=== PATIENT | male | born 1950 | race Caucasian/White ===

== ENCOUNTER 2019-11-16 13:27 | Emergency (ER) | payer OTHER, MEDICARE ==
[~2019-11-16] VITALS: Ht 193 cm; Wt 136.1 kg
[2019-11-16 13:55] VITALS: BP 167/92
[2019-11-16] MEDS ORDERED: CEPH-264 PO (14:36)
[2019-11-16] MEDS ORDERED: MUPI22OI2 TP (14:36)
--- NOTE | 2019-11-16 14:37 | PHYS DOC ---
Past Medical History Past Medical History: No Pertinent History Past Surgical History: Other Additional Past Surgical Histo: LEFT KNEE Alcohol Use: None Drug Use: None Adult General Chief Complaint Chief Complaint: KNEE INJURY HPI HPI Patient is a 69 year old [f__sex] who presents with [] Review of Systems Review of Systems Constitutional: Denies fever or chills [] Eyes: Denies change in visual acuity, redness, or eye pain [] HENT: Denies nasal congestion or sore throat [] Respiratory: Denies cough or shortness of breath [] Cardiovascular: No additional information not addressed in HPI [] GI: Denies abdominal pain, nausea, vomiting, bloody stools or diarrhea [] : Denies dysuria or hematuria [] Musculoskeletal: Denies back pain or joint pain [] Integument: Denies rash or skin lesions [] Neurologic: Denies headache, focal weakness or sensory changes [] Endocrine: Denies polyuria or polydipsia [] All other systems were reviewed and found to be within normal limits, except as documented in this note. Allergies Allergies Allergies Coded Allergies Type Severity Reaction Last Updated Verified iodine Allergy Severe RASH 11/16/19 Yes Physical Exam Physical Exam Constitutional: Well developed, well nourished, no acute distress, non-toxic appearance. [] HENT: Normocephalic, atraumatic, bilateral external ears normal, oropharynx moist, no oral exudates, nose normal. [] Eyes: PERRLA, EOMI, conjunctiva normal, no discharge. [] Neck: Normal range of motion, no tenderness, supple, no stridor. [] Cardiovascular:Heart rate regular rhythm, no murmur [] Lungs & Thorax: Bilateral breath sounds clear to auscultation [] Abdomen: Bowel sounds normal, soft, no tenderness, no masses, no pulsatile masses. [] Skin: Warm, dry, no erythema, no rash. [] Back: No tenderness, no CVA tenderness. [] Extremities: No tenderness, no cyanosis, no clubbing, ROM intact, no edema. [] Neurologic: Alert and oriented X 3, normal motor function, normal sensory function, no focal deficits noted. [] Psychologic: Affect normal, judgement normal, mood normal. [] Current Patient Data Vital Signs Vital Signs Date Time Temp Pulse Resp B/P (MAP) Pulse Ox O2 Delivery O2 Flow Rate FiO2 11/16/19 13:55 97.0 74 20 167/92 (117) 94 Room Air 97.0 EKG EKG [] Radiology/Procedures Radiology/Procedures [] Course & Med Decision Making Course & Med Decision Making Pertinent Labs and Imaging studies reviewed. (See chart for details) [] Dragon Disclaimer Dragon Disclaimer This electronic medical record was generated, in whole or in part, using a voice recognition dictation system. Departure Departure Impression: Primary Impression: Abrasion, right thigh, initial encounter Additional Impression: Cellulitis of right thigh Disposition: HOME, SELF-CARE Condition: STABLE Referrals: NO PCP (PCP) Patient Instructions: Abrasions, Cellulitis, [id number] Additional Instructions: Keep the area clean and dry. You may take Tylenol or ibuprofen as needed for pain. Change the dressing twice a day and apply antibiotic ointment to the area. Follow-up with your primary care doctor, or return to the emergency room if you develop signs of infection including: redness, warmth, drainage, or a fever. Scripts Mupirocin (MUPIROCIN OINTMENT) 22 Gm Oint...g. 1 MICHOACANO TP BID for WOUND CARE for 7 Days, #1 TUBE 0 Refills Prov: [facility] 11/16/19 Cephalexin (KEFLEX) 500 Mg Capsule 500 MG PO QID for 7 Days, #28 CAP 0 Refills Prov: [facility] 11/16/19 Problem Qualifiers [facility] Nov 16, 2019 14:37
== END 2019-11-16 14:44 | disposition home or self-care (01) ==
LOC: ER 13:27
DX: S70.311A Abrasion, right thigh, initial encounter (principal); L03.115 Cellulitis of right lower limb; Z88.8 Allergy status to other drugs, medicaments and biological substances; W10.1XXA Fall (on)(from) sidewalk curb, initial encounter; Y93.89 Activity, other specified; Y92.89 Other specified places as the place of occurrence of the external cause; Y99.8 Other external cause status
CPT/HCPCS: 99283

== ENCOUNTER → 2020-01-12 | Outpatient (CLI) | payer OTHER ==
[~2020-01-12] MED LIST: CEPH-264 PO; MUPI22OI2 TP
--- NOTE | 2020-01-12 10:07 | KCIC ---
ABDOMEN LTD History: Elevated transaminase Comparison: None. Findings: Multiple sonographic images of the abdomen are submitted. Exam is limited due to bowel gas and patient's body habitus. Pancreas, inferior vena cava, and proximal abdominal aorta are not well visualized, also the entirety of the liver not well-visualized. There is segmental visualization of the inferior vena cava. There is coarsening of the hepatic echotexture. Right lobe of the liver measured 20.4 cm longitudinal. There is a hypoechoic lesion with internal echoes of the left lobe of liver about 2.9 x 2.3 x 2.8 cm, degree of increased through transmission and not associated with significant internal vascularity on color Doppler imaging. Visualized abdominal aortic caliber is within normal limits up to 2.1 cm near mid segment. Common bile duct is within normal limits at 0.4 cm. Right kidney measured 11.8 x 5.7 x 5.8 cm, no hydronephrosis. Gallbladder is present without intraluminal abnormality, wall thickening, or pericholecystic fluid. Impression: 1. Exam is limited as stated. There is coarsening of the hepatic echotexture probably due to steatosis. There is hepatomegaly. There is a hypoechoic lesion of the left lobe of liver with features most suggestive of somewhat complex cyst. Electronically signed by: Jarvis Espinosa MD (01/12/2020 10:04 AM) [id number]
== END | disposition home or self-care (01) ==
LOC: KCIC US 07:50
PROVIDERS: ATTEND Family Medicine
DX: R16.0 Hepatomegaly, not elsewhere classified (principal); K76.89 Other specified diseases of liver; R74.0 Nonspecific elevation of levels of transaminase and lactic acid dehydrogenase [LDH]
CPT/HCPCS: 76705